=== PATIENT | female | born 1980 | race Two or more races ===

== ENCOUNTER 2024-07-23 07:48 | Day surgery (SDC) | payer MEDICAID ==
[2024-07-22 11:45] LABS: Basophils # (auto) 0.1 10 ^3/uL (0-0.2); Eosinophils # (auto) 0.1 10 ^3/uL (0-0.8); Eosinophils % (auto) 1.6 % (0.0-7.0); Hematocrit 37.9 % (36.0-46.0); Hemoglobin 12.1 g/dL (12.2-16.2); Lymphocytes # (auto) 2.6 10 ^3/uL (0.4-5.4); Lymphocytes % (auto) 38.9 % (10.0-50.0); Mean Corpuscular Hemoglobin 25.5 pg (28.0-32.0); Mean Corpuscular Hgb Conc. 31.8 g/dL (32.0-36.0); Mean Corpuscular Volume 80.1 fL (80.0-100.0); Monocytes # (auto) 0.6 10 ^3/uL (0-1.3); Monocytes % (auto) 8.4 % (0.0-12.0); Neutrophils # (auto) 3.4 10 ^3/uL (1.6-8.6); Neutrophils % (auto) 50.1 % (37.0-80.0); Nucleated Red Blood Cells % 0.1 %; Platelet Count (auto) 330 10^3/uL (140-450); Red Blood Cells 4.74 10^6/uL (4.0-5.20); Red Cell Distribution Width 14.8 % (11.8-14.3); White Blood Cell 6.7 10^3/uL (4.4-10.8)
[2024-07-22 12:07] LABS: INR 1.01 (0.9-1.15); Partial Thromboplastin Time 28.7 SEC (24.5-34.5); Prothrombin Time 10.7 sec (9.3-11.8)
[2024-07-22 12:27] LABS: Alanine Aminotransferase 13 U/L (7-40); Alkaline Phosphatase 69 U/L (46-116); Anion Gap 7 (5-15); Aspartate Aminotransferase 15 U/L (13-40); BUN/Creatinine Ratio 20.9 (10.0-20.0); Bilirubin, Total 0.4 mg/dL (0.2-1.0); Blood Urea Nitrogen 18 mg/dL (9-23); Calcium 10.3 mg/dL (8.7-10.4); Carbon Dioxide 29 mmol/L (20-31); Chloride 104 mmol/L (98-107); Glucose 84 mg/dL (74-106); Potassium 4.2 mmol/L (3.5-5.1); Sodium 140 mmol/L (136-145); Total Protein 7.8 g/dL (5.7-8.2)
[2024-07-22 12:31] LABS: Albumin 4.9 g/dL (3.2-4.8)
[~2024-07-23] VITALS: Ht 157.5 cm; Wt 102.1 kg
[2024-07-23] VITALS (11 sets, daily range): BP systolic 103–149; BP diastolic 52–88; PULSE 57–74; RESP 11–20; TEMP 97.9; O2SAT 98–100
[~2024-07-23 07:48] MED LIST: FENO67CA13 PO; LEVO175T4 PO; LOSA-534 PO
--- NOTE | 2024-07-23 08:57 | ECG ---
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
[2024-07-23] MEDS ORDERED: fentaNYL CITRATE 100 MCG/2 ML VL ONE (10:08)
[2024-07-23] MEDS ORDERED: ANGIOMAX 250 MG VIAL IV ONE (10:08)
[2024-07-23] MEDS ORDERED: HEPARIN SODIUM (PORCINE) 5000 UNITS/ML 1ML VIAL ONE (10:08)
[2024-07-23] MEDS ORDERED: VERAPAMIL 2.5MG/ML INJ 2ML VIAL IV ONE (10:08)
[2024-07-23] MEDS ORDERED: MIDAZOLAM HCL 2MG/2ML 2ml VIAL (1mg/ml) ONE (10:09)
[2024-07-23] MEDS ORDERED: HEPARIN IN NS 1000Units/500mL 0 ML ONE (10:09)
[2024-07-23] MEDS ORDERED: LIDOCAINE 2%HCL (LOCAL ANESTH.) INJ 20ML MDV ONE ×2 (10:09→11:30)
[2024-07-23] MEDS ORDERED: SODIUM CHL 0.9% 0 ML ONE (10:09)
[2024-07-23] MEDS ORDERED: IODIXANOL 320MG/ML 100ML BTL IV ONE (10:32)
[2024-07-23] MEDS: SODIUM CHLORIDE 0.9% 500 ML IV ONE (12:30)
[2024-07-23] MEDS ORDERED: ISOSORBIDE MONONITRATE ER 60 MG TAB PO ONE (12:39)
[2024-07-23] MEDS: ISOSORBIDE MONONITRATE ER 60 MG TAB PO ONE (12:41)
[2024-07-23] MEDS: amLODIPine BESYLATE 5 MG TAB PO ONE (12:42)
[2024-07-23] MEDS: SODIUM CHLORIDE 0.9% 1,000 ML IV ONE (13:30)
--- NOTE | 2024-07-23 13:57 | DVHOP ---
DATE OF SURGERY: 07/23/2024 CARDIAC CATHETERIZATION PROCEDURE LIST: * Ultrasound-guided access of the right groin. * Ultrasound-guided access of the right radial artery. * Right femoral angiogram. * Coronary angiogram. * Application of the Angio-Seal closing device. INDICATION: The patient is a 44-year-old lady who presented with recurrent chest pain. DESCRIPTION OF PROCEDURE: The procedure was performed under conscious sedation. Ultrasound-guided access was initially attempted on the right radial artery. This artery is small. We were not able to advance the wire. The radial artery was manually compressed without any complication. The right groin access was obtained through ultrasound-guided procedure. A 6 [place] sheath was introduced in the right common femoral artery. The right and left Colleen catheters were used to engage the right and left coronary arteries and a pigtail catheter was used to engage the left ventricle. FINDINGS: * Right iliofemoral angiogram revealed luminal irregularity with patent vessels. * Left main coronary artery is widely patent. The left main coronary artery bifurcated into the LAD and circumflex. * LAD is patent without observable stenosis. * The left circumflex has 20% disease at the ostium with haziness, but maintained NIMCO flow 3. * Right coronary artery has 30% disease at the ostium to proximal portion with severe spasm, which was responded to the intracoronary nitroglycerin. From the proximal to mid portion, it is ectatic and has some diffuse disease distally. * Left ventriculogram revealed normal heart size with normal wall motion. Left ventricular ejection fraction 65%. LVEDP was 5 mmHg and there was no transaortic gradient upon pullback. * The femoral sheath was removed and Angio-Seal closing device was applied without any complication. Estimated blood loss was 10 mL. The patient remained stable throughout the procedure and post-procedure. Of note, during coronary spasm, the patient did have chest pain, which resolved after nitroglycerin injection. We also noted left bundle-branch block during and post-procedure. The left bundle-branch block, however, was noted during a stress test previously. This is not associated with any symptoms. The patient was given amlodipine 5 mg x 1 in the cytology laboratory manager and also Imdur 30 mg in the cytology laboratory manager as well. IMPRESSION: This is a 44-year-old lady who presented with mild to moderate coronary artery disease associated with severe coronary spasm noted in the right coronary artery associated with chest pain. PLAN: The patient will be placed on aspirin 81 mg p.o. daily. We will continue amlodipine 5 mg p.o. daily, Imdur 30 mg p.o. daily as tolerated. The patient already has anticholesterol medication. Further adjustment will be made as outpatient. The patient's disease process and therapeutic plan were discussed with the patient in detail. Marychuy Brody MD ML/OUMAR TID: [id number] RECEIPT: [id number]
--- NOTE | 2024-07-23 15:14 | DVHDS ---
DATE OF DISCHARGE: 07/23/2024 DIAGNOSES: * Chest pain due to coronary spasm. * Coronary artery disease. * Intermittent left bundle branch block. HOSPITAL COURSE: This is a 44-year-old lady who presented with recurrent chest pain, was admitted to the outpatient cardiac catheterization laboratory for coronary angiogram. Coronary angiogram showed [id number] coronary artery disease associated with severe coronary spasm associated with chest pain. Coronary spasm responded well to intracoronary nitroglycerin. The patient remained stable throughout the hospital stay. The patient is discharged in stable condition. The patient will be given outpatient prescription for amlodipine 5 mg p.o. daily, Imdur 30 mg p.o. daily and aspirin 81 mg p.o. daily. The patient will have a followup appointment with Dr. Brody as outpatient. MD MOSES Clifton/PATRICK TID: [id number] RECEIPT: [id number]
--- NOTE | 2024-07-25 12:45 | ECG ---
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
== END 2024-07-23 16:30 | disposition home or self-care (01) ==
LOC: CATH 07:48
PROVIDERS: ATTEND Internal Medicine Cardiovascular Disease
DX: I25.119 Atherosclerotic heart disease of native coronary artery with unspecified angina pectoris (principal); R07.89 Other chest pain; I44.7 Left bundle-branch block, unspecified; E66.01 Morbid (severe) obesity due to excess calories; E03.9 Hypothyroidism, unspecified; E78.00 Pure hypercholesterolemia, unspecified; I10 Essential (primary) hypertension; Z79.899 Other long term (current) drug therapy; Z98.890 Other specified postprocedural states; Z79.890 Hormone replacement therapy
CPT/HCPCS: 36415; 80053; 84702; 85025; 85610; 85730; 93005; 93458; C1760; C1769; C1887; C1894; J1644; J2250; J3010; J7030; 99152; Q9967